=== PATIENT | female | born 1970 | race Caucasian/White ===

== ENCOUNTER 2017-05-10 01:36 | Emergency (ER) | payer BC, OTHER ==
[2017-05-10 01:52] VITALS: RESP 18
[2017-05-10] MEDS ORDERED: PENICILLIN VK 500MG STARTER 4 TAB BTL PO STA (02:08)
[2017-05-10] MEDS ORDERED: IBUPROFEN 600 MG STARTER PACK 4 TAB BTL PO STA (02:08)
--- NOTE | 2017-05-10 02:37 | ED ---
General Adult HPI - General Chief complaint: Dental/Oral Stated complaint: Facial Pain/ENT Time Seen by Provider: 05/10/17 02:01 Source: patient, RN notes reviewed Mode of arrival: ambulatory Limitations: no limitations - History of Present Illness Initial comments: 46-year-old female presents emergency department with a chief complaint of left- sided dental pain. She states that she has had a fracture to her left tooth for a while now however. Stool of flared up. She states she is having some facial swelling with it. She denies any fever chills any nausea or vomiting. She states is just in the left side of the face. She denies any drainage or discharge from the area. He was concerned due to her continued pain so she thought that she should be seen.Patient denies any recent fever, chills, shortness of breath, chest pain, back pain, abdominal pain, nausea vomiting, numbness or tingling, dysuria or hematuria, constipation or diarrhea, headaches or visual changes, or any other current symptoms. - Related Data Previous Rx's Medication Instructions Recorded HYDROcodone/APAP 5-325MG [[place] 5] 1 each PO Q4HR PRN #10 tab 03/02/15 Ibuprofen [Motrin] 600 mg PO Q6HR PRN #20 tab 05/10/17 Penicillin V Potassium [Pen Vee K] 500 mg PO QID 7 Days tablet 05/10/17 Allergies Allergy/AdvReac Type Severity Reaction Status Date / Time aspirin AdvReac Unknown Verified 05/10/17 01:53 Review of Systems ROS Statement: Those systems with pertinent positive or pertinent negative responses have been documented in the HPI. ROS Other: All systems not noted in ROS Statement are negative. Past Medical History Past Medical History: Hyperlipidemia, Osteoarthritis (OA) Additional Past Medical History / Comment(s): TMJ, meniere's disease, History of Any Multi-Drug Resistant Organisms: None Reported Past Surgical History: Hysterectomy, Orthopedic Surgery Additional Past Surgical History / Comment(s): 12/06/15 Lumbar laminectomy with discectomy L4-L5. Other surgical hx: NECK FUSION. PAIN PROCEDURES., Past Anesthesia/Blood Transfusion Reactions: No Reported Reaction Past Psychological History: Depression Smoking Status: Current every day smoker Past Alcohol Use History: Rare Past Drug Use History: None Reported - Past Family History Father Family Medical History: Dementia, Diabetes Mellitus, Hypertension Additional Family Medical History / Comment(s): Father is in his mid 80's Mother Family Medical History: No Reported History Additional Family Medical History / Comment(s): Mother is in her mid 80's and does not go to the doctors. General Exam Limitations: no limitations General appearance: alert, in no apparent distress Eye exam: Present: normal appearance, PERRL, EOMI. Absent: scleral icterus, conjunctival injection, periorbital swelling ENT exam: Present: normal exam, mucous membranes moist, other (Patient does appear to have a cavity to tooth #15 and doesn't appear to be fractured. No abscess noted.) Neck exam: Present: normal inspection. Absent: tenderness, meningismus, lymphadenopathy Respiratory exam: Present: normal lung sounds bilaterally. Absent: respiratory distress, wheezes, rales, rhonchi, stridor Cardiovascular Exam: Present: regular rate, normal rhythm, normal heart sounds. Absent: systolic murmur, diastolic murmur, rubs, gallop, clicks Extremities exam: Present: normal inspection, full ROM, normal capillary refill. Absent: tenderness, pedal edema, joint swelling, calf tenderness Back exam: Present: normal inspection Neurological exam: Present: alert, oriented X3 Psychiatric exam: Present: normal affect, normal mood Course Vital Signs 05/10/17 01:48 Temperature 99.1 F Pulse Rate 89 Respiratory 18 Rate Blood Pressure 137/79 O2 Sat by Pulse 99 Oximetry Medical Decision Making - Medical Decision Making 46-year-old female presents for what appears to be dental cavity. At this time we did discuss we'll start her antibiotics and anti-inflammatories. We discussed her continuing her narcotic pain medication that she currently has for back pain. We did discuss return parameters as well as close follow-up with a dentist. We discussed all questions. The patient stated that she understood and she is agreement with this plan. This time she will be discharged. Disposition Clinical Impression: Dental caries Disposition: HOME SELF-CARE Condition: Stable Instructions: Dental Caries (ED) Additional Instructions: Please use medication as discussed. Please follow up with family doctor if symptoms have not improved over the next two days. Please return to the emergency room if your symptoms increase or worsen or for any other concerns. Prescriptions: Ibuprofen [Motrin] 600 mg PO Q6HR PRN #20 tab PRN Reason: Pain Penicillin V Potassium [Pen Vee K] 500 mg PO QID 7 Days tablet Referrals: Alvin Treadwell III, MD [Primary Care Provider] - 1-2 days Time of Disposition: 02:37
[2017-05-10 02:51] VITALS: BP 168/84; PULSE 75; TEMP 98.8
== END 2017-05-10 02:53 | disposition home or self-care (01) ==
LOC: EC 01:36
DX: K02.9 Dental caries, unspecified (principal); F17.200 Nicotine dependence, unspecified, uncomplicated; Z88.6 Allergy status to analgesic agent
CPT/HCPCS: 99282

== ENCOUNTER → 2018-11-12 | Outpatient (CLI) | payer MEDICARE ==
--- NOTE | 2018-11-15 09:48 | MM ---
Reason for exam: screening (asymptomatic). Last mammogram was performed 3 years and 9 months ago. History: Family history of breast cancer in maternal grandmother. Benign excisional biopsy of the left breast, 1999. Physical Findings: A clinical breast exam by your physician is recommended on an annual basis and results should be correlated with mammographic findings. MG 3D Screening Mammo W/Cad Bilateral CC and MLO view(s) were taken. XCCL view(s) were taken of the right breast. Prior study comparison: February 05, 2015, right breast MG 3d work up w/cad RT. January 26, 2015, bilateral MG screening mammo w CAD. There are scattered fibroglandular densities. Benign appearing calcifications in the right breast. No suspicious abnormality. No significant changes when compared with prior studies. ASSESSMENT: Benign, BI-RAD 2 RECOMMENDATION: Routine screening mammogram of both breasts in 1 year.
== END | disposition home or self-care (01) ==
LOC: RADMAMWWP 08:20
PROVIDERS: ATTEND Family Medicine
DX: Z12.31 Encounter for screening mammogram for malignant neoplasm of breast (principal)
CPT/HCPCS: 77063; 77067

== ENCOUNTER → 2019-06-08 | Outpatient (CLI) | payer MEDICARE ==
--- NOTE | 2019-06-08 12:00 | XR ---
Cervical spine HISTORY: Neck pain, cervical disc disorder 6 views of the cervical spine No comparisons Patient is status post anterior cervical fusion and discectomy at C5-C7. Intervertebral spacing block s are present. There is anatomic alignment. Cervical vertebral bodies show preserved height and bone mineralization. No evident foraminal encroachment on the right, there is foraminal encroachment on th e left at C5-6 and C6-7. C7-T1 not well seen. Suspect thoracic scoliosis may be present. There are fa cet arthropathy changes. Mild multilevel spondylosis is present. Some mild loss of disc height C3-4, C4-5. IMPRESSION: Postop changes, foraminal encroachment. Degenerative disc disease.
--- NOTE | 2019-06-08 12:09 | XR ---
Lumbar spine HISTORY: Back pain 3 views of the lumbar spine correlated prior exam 03/01/2015 There is multilevel spondylosis present. Lumbar vertebral bodies show preserved height and alignment. Mild loss of intervertebral disc height is present especially L5-S1, L2-3 and L4-5. Sclerosis presen t in the posterior elements of the lower lumbar spine. IMPRESSION: Degenerative disc disease and facet arthropathy.
== END | disposition home or self-care (01) ==
LOC: RADXRWHC 10:36
PROVIDERS: ATTEND Family Medicine
DX: M50.30 Other cervical disc degeneration, unspecified cervical region (principal); M51.36 Other intervertebral disc degeneration, lumbar region; M46.96 Unspecified inflammatory spondylopathy, lumbar region; Z98.890 Other specified postprocedural states
CPT/HCPCS: 72050; 72100

== ENCOUNTER 2022-05-07 10:47 | Emergency (ER) | payer BC, MEDICARE ==
[2022-05-07 10:53] VITALS: TEMP 98.2
[2022-05-07] MEDS ORDERED: PANTOPRAZOLE 40 MG/10 ML VIAL IVP STA (11:34)
[2022-05-07] MEDS ORDERED: SODIUM CHLORIDE 0.9% 1,000 ML IV STA (11:34)
[2022-05-07] MEDS ORDERED: ONDANSETRON 4 MG/2 ML VIAL IVP STA (11:34)
[2022-05-07 13:03] LABS: Appearance,Urine Clear (Clear); Bilirubin,Urine Negative (Negative); Blood,Urine Negative (Negative); Color,Urine Colorless; Glucose,Urine (UA) Negative (Negative); Ketones,Urine Negative (Negative); Leukocyte Esterase,Urine Negative (Negative); Nitrite,Urine Negative (Negative); PH, Urine 5.5 (5.0-8.0); Protein,Urine Negative (Negative); Specific Gravity,Urine 1.003 (1.001-1.035); Urobilinogen,Urine <2.0 mg/dL (<2.0)
--- NOTE | 2022-05-07 13:15 | XR ---
EXAMINATION TYPE: XR chest 2V DATE OF EXAM: 05/07/2022 COMPARISON: NONE HISTORY: Abdominal pain and tremors TECHNIQUE: Frontal and lateral views of the chest are obtained. FINDINGS: The cardiomediastinal silhouette is unremarkable. There is no pulmonary vascular congestio n. The lungs are clear and there is no pleural effusion. No pneumothorax. No acute osseous abnormalit y. Anterior cervical disc fusion present. IMPRESSION: No acute cardiopulmonary process.
[2022-05-07 13:16] LABS: ALT 29 U/L (4-34); AST 33 U/L (14-36); African American GFR (CKD) >90 (>60 ml/min/1.73 sqM); Albumin 4.1 g/dL (3.5-5.0); Alkaline Phosphatase 117 U/L (38-126); Amylase 65 U/L (30-110); Anion Gap 5 mmol/L; Blood Urea Nitrogen 11 mg/dL (7-17); Calcium 8.9 mg/dL (8.4-10.2); Carbon Dioxide 25 mmol/L (22-30); Chloride 108 mmol/L (98-107); Glucose 105 mg/dL (74-99); Lipase 114 U/L (23-300); Non-African American GFR(CKD) >90 (>60 ml/min/1.73 sqM); Potassium 4.6 mmol/L (3.5-5.1); Sodium 138 mmol/L (137-145); Total Bilirubin 0.4 mg/dL (0.2-1.3); Total Protein 7.2 g/dL (6.3-8.2)
[2022-05-07 13:17] LABS: Basophils % (A) 1 %; Eosinophils # (A) 0.1 k/uL (0-0.7); Eosinophils % (A) 2 %; HGB 13.2 gm/dL (11.4-16.0); Lymphocytes # (A) 1.1 k/uL (1.0-4.8); Lymphocytes % (A) 13 %; MCH 28.4 pg (25.0-35.0); MCV 86.1 fL (80.0-100.0); Monocytes # (A) 0.3 k/uL (0-1.0); Monocytes % (A) 3 %; Neutrophils # (A) 6.6 k/uL (1.3-7.7); Neutrophils % (A) 81 %; Platelet Count 184 k/uL (150-450); RBC 4.65 m/uL (3.80-5.40); RDW 14.1 % (11.5-15.5); WBC 8.2 k/uL (3.8-10.6)
[2022-05-07 13:23] LABS: INR 0.9 (<1.2); Partial Thromboplastin Time 22.1 sec (22.0-30.0)
--- NOTE | 2022-05-07 14:18 | ED ---
General Adult HPI - General Chief complaint: Abdominal Pain Stated complaint: Abd pain Time Seen by Provider: 05/07/22 11:07 Source: patient, RN notes reviewed, old records reviewed Mode of arrival: EMS Limitations: no limitations - History of Present Illness Initial comments: Patient is a 51-year-old female with past medical history remarkable for chol ecystectomy last December presents emergency Department complaining of sudden onset nausea, vomiting earlier today. States she awoke, was eating and drinking her normal breakfast including coffee and toast when she had sudden onset nonbilious, bloody emesis. Multiple episodes. States she does have anxiety regarding food. At some epigastric discomfort at time but denies any pain now. Denies any chest pain. Denies any shortness breath. Denies any fevers, chills, cough. His no other acute complaints at this time. No urinary complaints. Presents because she is uncertain what caused the sudden onset nausea and vomiting. No other symptoms present. No other family members with similar symptoms. Presents for further evaluation. - Related Data Home Medications Medication Instructions Recorded Confirmed DULoxetine HCL [Cymbalta] 30 mg PO DAILY 05/07/22 05/07/22 Probiotic + Prebiotic 1 tab PO DAILY 05/07/22 05/07/22 Rosuvastatin [Crestor] 10 mg PO HS 05/07/22 05/07/22 Previous Rx's Medication Instructions Recorded Ondansetron Odt [Zofran Odt] 4 mg PO Q8HR PRN 3 Days #9 tab 05/07/22 Allergies Allergy/AdvReac Type Severity Reaction Status Date / Time latex Allergy Rash/Hives Verified 05/07/22 12:13 aspirin AdvReac Shaking Verified 05/07/22 12:13 Review of Systems ROS Statement: Those systems with pertinent positive or pertinent negative responses have been documented in the HPI. Review of Systems: CONST: Denies fever EYES: Denies blurry vision ENT: Denies nasal congestion C/V: Denies Chest pain RESP: Denies shortness of breath GI: Denies abdominal pain : Denies dysuria SKIN: Denies rash. MSK: Denies joint pain. NEURO: Denies headache ROS Other: All systems not noted in ROS Statement are negative. Past Medical History Past Medical History: Hyperlipidemia, Osteoarthritis (OA) Additional Past Medical History / Comment(s): TMJ, meniere's disease, History of Any Multi-Drug Resistant Organisms: None Reported Past Surgical History: Cholecystectomy, Hysterectomy, Orthopedic Surgery Additional Past Surgical History / Comment(s): 12/06/15 Lumbar laminectomy with discectomy L4-L5. Other surgical hx: NECK FUSION. PAIN PROCEDURES., Past Anesthesia/Blood Transfusion Reactions: No Reported Reaction Past Psychological History: Depression Smoking Status: Former smoker Past Alcohol Use History: Rare Past Drug Use History: None Reported - Past Family History Father Family Medical History: Dementia, Diabetes Mellitus, Hypertension Additional Family Medical History / Comment(s): Father is in his mid 80's Mother Family Medical History: No Reported History Additional Family Medical History / Comment(s): Mother is in her mid 80's and does not go to the doctors. General Exam - General Exam Comments Initial Comments: General: Appears in no acute distress. HEAD: Normal with no signs of head trauma. EYES: PERRLA, EOMI, conjunctiva normal, no discharge. ENT: Hearing grossly intact, normal oropharynx. RESPIRATORY: Clear breath sounds bilaterally. No wheezes, rales, or rhonchi. C/V: Regular rate and rhythm. S1 and S2 auscultated, no edema, peripheral pulses 2+ and intact throughout ABD: Abd is soft, nontender, nondistended EXT: Normal range of motion, no obvious deformity SKIN: No rashes or lesions observed on exposed skin. NEURO: Alert and oriented x 4. Cranial nerves II-XII intact. No focal sensory or strength deficits. Limitations: no limitations Course Vital Signs 05/07/22 05/07/22 10:50 14:31 Temperature 98.2 F Pulse Rate 83 79 Respiratory 17 16 Rate Blood Pressure 148/78 137/90 O2 Sat by Pulse 98 96 Oximetry Medical Decision Making - Medical Decision Making Based on the patient's presentation and physical exam, I am concerned for what sounds like more of an anxiety episode but cannot rule out other etiology at this time including possible abdominal or atypical ACS presentation. She is a symptomatic at this time. She has no complaints at this time. We will obtain abdominal laboratory studies, screening EKG, chest x-ray, as well as troponin. She was in agreement this plan. She'll be symptomatic the treated with IV fluids as well as empirically with IV Zofran and Protonix. Vital signs within acceptable limits. EKG showed no signs of acute ischemia. Chest x-ray revealed no acute cardio pulmonary process. Laboratory studies were remarkable for a undetectable troponin. Remainder the labs are within acceptable limits. On reevaluation, patient is feeling the same. She remains a symptomatic. She would like to go home. I believe this is reasonable. Symptoms could've been related to anxiety, gastritis and she admits she not been taking her Protonix. I did recommend that she resume this. She was in agreement this plan. Strict return precautions were discussed. I will provide the patient with a prescription for ODT Zofran. I instructed the patient to follow up with their PCP in the next 1-3 days. I explained that the patient should return to the emergency department if they experience any worsening symptoms. Strict return precautions were discussed with the patient. The patient expressed understanding of these instructions. I answered all questions that the patient had. The patient was discharged home in good condition with their prescriptions and follow up information. Was pt. sent in by a medical professional or institution (, PA, MICROBIOLOGY ANALYST, urgent care, hospital, or long term...) When possible be specific @ -No Did you speak to anyone other than the patient for history (EMS, parent, family, police, friend...)? What history was obtained from this source @ -No Did you review nursing and triage notes (agree or disagree)? Why? @ -I reviewed and agree with nursing and triage notes Were old charts reviewed (outside hosp., previous admission, EMS record, old EKG, old radiological studies, urgent care reports/EKG's, long term records)? Report findings @ -No old charts were reviewed Differential Diagnosis (chest pain, altered mental status, abdominal pain women, abdominal pain men, vaginal bleeding, weakness, fever, dyspnea, syncope, headache, dizziness, GI bleed, back pain, seizure, CVA, palpatations, mental health)? @ -Anxiety, gastritis, ACS, infectious. This list is not all inclusive. EKG interpreted by me (3pts min.). @ -As above X-rays interpreted by me (1pt min.). @ -Chest X-ray revealed no acute cardiopulmonary process. CT interpreted by me (1pt min.). @ -None done U/S interpreted by me (1pt. min.). @ -None done What testing was considered but not performed or refused? (CT, X-rays, U/S, labs)? Why? @ -None What meds were considered but not given or refused? Why? @ -None Did you discuss the management of the patient with other professionals (professionals i.e. , PA, MICROBIOLOGY ANALYST, lab, RT, psych nurse, social media job titles, stock analyst, teacher, senior credit officer, caseworker protective services)? Give summary @ -No Was smoking cessation discussed for >3mins.? @ -No Was critical care preformed (if so, how long)? @ -No Were there social determinants of health that impacted care today? How? (Home lessness, low income, unemployed, alcoholism, drug addiction, transportation, low edu. Level, literacy, decrease access to med. care, alf, rehab)? @ -No Was there de-escalation of care discussed even if they declined (Discuss DNR or withdrawal of care, Hospice)? DNR status @ -No What co-morbidities impacted this encounter? (DM, HTN, Smoking, COPD, CAD, Cancer, CVA, ARF, Chemo, Hep., AIDS, mental health diagnosis, sleep apnea, morbid obesity)? @ -History of cholecystectomy, gastritis Was patient admitted / discharged? Hospital course, mention meds given and route, prescriptions, significant lab abnormalities, going to OR and other pertinent info. @ -Patient was discharged home. See above for ED course. Undiagnosed new problem with uncertain prognosis? @ -No Drug Therapy requiring intensive monitoring for toxicity (Heparin, Nitro, Insulin, Cardizem)? @ -No Were any procedures done? @ -No Diagnosis/symptom? @ -Nausea and Vomiting Acute, or Chronic, or Acute on Chronic? @ -Acute Uncomplicated (without systemic symptoms) or Complicated (systemic symptoms)? @ -Uncomplicated Side effects of treatment? @ -No Exacerbation, Progression, or Severe Exacerbation? @ -No Poses a threat to life or bodily function? How? (Chest pain, [place], [place], pneumonia, PE, COPD, DKA, ARF, appy, cholecystitis, CVA, Diverticulitis, Homicidal, Suicidal, threat to staff... and all critical care pts) @ -No - Lab Data Result diagrams: 05/07/22 12:37 05/07/22 12:37 Lab Results 05/07/22 05/07/22 05/07/22 Range/Units 12:37 12:37 12:37 WBC 8.2 (3.8-10.6) k/uL RBC 4.65 (3.80-5.40) m/uL Hgb 13.2 (11.4-16.0) gm/dL Hct 40.0 (34.0-46.0) % MCV 86.1 (80.0-100.0) fL MCH 28.4 (25.0-35.0) pg MCHC 33.0 (31.0-37.0) g/dL RDW 14.1 (11.5-15.5) % Plt Count 184 (150-450) k/uL MPV 8.0 Neutrophils % 81 % Lymphocytes % 13 % Monocytes % 3 % Eosinophils % 2 % Basophils % 1 % Neutrophils # 6.6 (1.3-7.7) k/uL Lymphocytes # 1.1 (1.0-4.8) k/uL Monocytes # 0.3 (0-1.0) k/uL Eosinophils # 0.1 (0-0.7) k/uL Basophils # 0.0 (0-0.2) k/uL PT (9.0-12.0) sec INR (<1.2) APTT (22.0-30.0) sec Sodium 138 (137-145) mmol/L Potassium 4.6 (3.5-5.1) mmol/L Chloride 108 H (98-107) mmol/L Carbon Dioxide 25 (22-30) mmol/L Anion Gap 5 mmol/L BUN 11 (7-17) mg/dL Creatinine 0.70 (0.52-1.04) mg/dL Est GFR (CKD-EPI)AfAm >90 (>60 ml/min/1.73 sqM) Est GFR (CKD-EPI)NonAf >90 (>60 ml/min/1.73 sqM) Glucose 105 H (74-99) mg/dL Plasma Lactic Acid [place] (0.7-2.0) mmol/L Calcium 8.9 (8.4-10.2) mg/dL Total Bilirubin 0.4 (0.2-1.3) mg/dL AST 33 (14-36) U/L ALT 29 (4-34) U/L Alkaline Phosphatase 117 (38-126) U/L Troponin I <0.012 (0.000-0.034) ng/mL Total Protein 7.2 (6.3-8.2) g/dL Albumin 4.1 (3.5-5.0) g/dL Amylase 65 (30-110) U/L Lipase 114 (23-300) U/L Urine Color Urine Appearance (Clear) Urine pH (5.0-8.0) Ur Specific [place] (1.001-1.035) Urine Protein (Negative) Urine Glucose (UA) (Negative) Urine Ketones (Negative) Urine Blood (Negative) Urine Nitrite (Negative) Urine Bilirubin (Negative) Urine Urobilinogen (<2.0) mg/dL Ur Leukocyte Esterase (Negative) 05/07/22 05/07/22 05/07/22 Range/Units 12:37 12:37 12:37 WBC (3.8-10.6) k/uL RBC (3.80-5.40) m/uL Hgb (11.4-16.0) gm/dL Hct (34.0-46.0) % MCV (80.0-100.0) fL MCH (25.0-35.0) pg MCHC (31.0-37.0) g/dL RDW (11.5-15.5) % Plt Count (150-450) k/uL MPV Neutrophils % % Lymphocytes % % Monocytes % % Eosinophils % % Basophils % % Neutrophils # (1.3-7.7) k/uL Lymphocytes # (1.0-4.8) k/uL Monocytes # (0-1.0) k/uL Eosinophils # (0-0.7) k/uL Basophils # (0-0.2) k/uL PT 10.0 (9.0-12.0) sec INR 0.9 (<1.2) APTT 22.1 (22.0-30.0) sec Sodium (137-145) mmol/L Potassium (3.5-5.1) mmol/L Chloride (98-107) mmol/L Carbon Dioxide (22-30) mmol/L Anion Gap mmol/L BUN (7-17) mg/dL Creatinine (0.52-1.04) mg/dL Est GFR (CKD-EPI)AfAm (>60 ml/min/1.73 sqM) Est GFR (CKD-EPI)NonAf (>60 ml/min/1.73 sqM) Glucose (74-99) mg/dL Plasma Lactic Acid Jos[place] 0.9 (0.7-2.0) mmol/L Calcium (8.4-10.2) mg/dL Total Bilirubin (0.2-1.3) mg/dL AST (14-36) U/L ALT (4-34) U/L Alkaline Phosphatase (38-126) U/L Troponin I (0.000-0.034) ng/mL Total Protein (6.3-8.2) g/dL Albumin (3.5-5.0) g/dL Amylase (30-110) U/L Lipase (23-300) U/L Urine Color Colorless Urine Appearance Clear (Clear) Urine pH 5.5 (5.0-8.0) Ur Specific [place] 1.003 (1.001-1.035) Urine Protein Negative (Negative) Urine Glucose (UA) Negative (Negative) Urine Ketones Negative (Negative) Urine Blood Negative (Negative) Urine Nitrite Negative (Negative) Urine Bilirubin Negative (Negative) Urine Urobilinogen <2.0 (<2.0) mg/dL Ur Leukocyte Esterase Negative (Negative) - EKG Data -: EKG Interpreted by Me EKG Comments: 12-lead Electrocardiogram Interpretation Note EKG was reviewed and interpreted by myself. 12-lead ECG performed at 1301 is interpreted by me as revealing normal sinus rhythm at a rate of 67 beats per minute. [place] is normal. NH interval is 152 ms, QRS duration is 95 ms, QTc is 438 ms.. There were no ST or T wave abnormalities to suggest myocardial ischemia or injury. R wave progression across the precordium was satisfactory. By my interpretation this EKG is non-diagnostic for acute ischemia. No prior EKG for comparison. Disposition Clinical Impression: Nausea and vomiting Disposition: HOME SELF-CARE Condition: Good Instructions (If sedation given, give patient instructions): Acute Nausea and Vomiting (ED) Prescriptions: Ondansetron Odt [Zofran Odt] 4 mg PO Q8HR PRN 3 Days #9 tab PRN Reason: Nausea Is patient prescribed a controlled substance at d/c from ED?: No Referrals: Wlima Villavicencio MD [Primary Care Provider] - 1-2 days Time of Disposition: 14:00
[2022-05-07 14:32] VITALS: BP 137/90; PULSE 79; RESP 16
== END 2022-05-07 14:32 | disposition home or self-care (01) ==
LOC: EC 10:47
DX: R11.2 Nausea with vomiting, unspecified (principal); E78.5 Hyperlipidemia, unspecified; M19.90 Unspecified osteoarthritis, unspecified site; F41.9 Anxiety disorder, unspecified; Z79.899 Other long term (current) drug therapy; Z87.891 Personal history of nicotine dependence; Z88.6 Allergy status to analgesic agent; Z91.040 Latex allergy status
CPT/HCPCS: 36415; 93005; 80053; 82150; 83605; 83690; 84484; 85025; 85610; 85730; 81003; 71046; 99285; 96374; 96375; 96361; J2405; C9113

== ENCOUNTER → 2022-09-23 | Outpatient (CLI) | payer BC ==
--- NOTE | 2022-09-24 18:54 | MM ---
Reason for Exam: Screening (asymptomatic). Last mammogram was performed 3 year(s) and 10 month(s) ago. Patient History: Menarche at age 9. First Full-Term at age 15. Hysterectomy at age 28. Postmenopausal. 1999, Benign Excisional Biopsy on the left side. Maternal grandmother had breast cancer. Risk Values: [place] 5 year model risk: 1.1%. NCI Lifetime model risk: 7.8%. Prior Study Comparison: 01/26/2015 Bilateral Screening Mammogram, [facility]. 02/05/2015 Right Diagnostic Mammogram, [facility]. 11/12/2018 Bilateral Screening Mammogram, [facility]. Tissue Density: There are scattered fibroglandular densities. Findings: Analyzed By CAD. Pattern appears symmetrical and stable. Benign calcification within the right breast no significant interval change is evident. No suspicious groups of microcalcifications, spiculated or lobular masses, architectural distortion or other secondary signs of malignancy are mammographically apparent. Overall Assessment: Benign, BI-RAD 2 Management: Screening Mammogram of both breasts in 1 year. A negative mammogram report should not preclude additional follow up of suspicious palpable abnormalities. Patient should continue monthly self breast exam. A clinical breast exam by your physician is recommended on an annual basis and results should be correlated with mammographic findings. Electronically signed and approved by: Shilo Ya D.O. Radiologis
== END | disposition home or self-care (01) ==
LOC: RADMAMWWP 14:35
PROVIDERS: ATTEND Family Medicine
DX: Z12.31 Encounter for screening mammogram for malignant neoplasm of breast (principal); Z78.0 Asymptomatic menopausal state; Z80.3 Family history of malignant neoplasm of breast
CPT/HCPCS: 77063; 77067

== ENCOUNTER → 2022-09-23 | Outpatient (CLI) | payer BC ==
--- NOTE | 2022-09-23 18:09 | CTL ---
EXAMINATION TYPE: CT Low Dose Lung DATE OF EXAM ORDERED: 09/23/2022 HISTORY: Z87.891 PERSONAL HX TOBACCO ABUSE. Lung cancer screening CT DLP: 82.[address] CTDI: 2.4 mGy Automated exposure control for dose reduction was used. SCREENING VISIT: First screening visit COMPARISON: Chest radiograph 05/07/2022 TECHNIQUE: Low dose computed tomography scan was performed through the chest at 1 mm thick sections a nd reconstructed images in multiple planes at 1 mm and [address] DIAGNOSTIC QUALITY: Satisfactory FINDINGS: LUNG NODULES: Left upper lobe 3 mm pulmonary nodule (series 4, image 44). Right upper lobe 3 mm pulmo nary nodule (series 4, image 41). 4 mm pulmonary nodule along the right minor fissure (series 4, imag e 137). This may represent an intrafissural lymph node. LUNGS: COPD: Severity: Mild Fibrosis: Severity: None Lymph nodes: None Other findings: None RIGHT PLEURAL SPACE: Effusion: None Calcification: None Thickening: None Pneumothorax: None LEFT PLEURAL SPACE: Effusion: None Calcification: None Thickening: None Pneumothorax: None HEART: Heart Size: Normal. Mild mitral annulus calcifications. Coronary Calcification: Small Pericardial Effusion: None OTHER FINDINGS: Upper abdomen: None Bony thorax: No acute process. Partial visualization of anterior cervical fusion hardware. Nonspecifi c sclerotic focus within the lower sternal. Supraclavicular region: None Other: None IMPRESSION: 1. Few scattered pulmonary nodules measuring up to [address] 2. Mild COPD changes. CT LUNG RAD AND CT CHEST RECOMMENDATION: Lung-Rad 2 Benign Appearance or Behavior: Continue annual sc reening with LDCT in 12 months. S Modifier (other clinically significant findings): None
== END | disposition home or self-care (01) ==
LOC: RADCTMAIN 14:58
PROVIDERS: ATTEND Family Medicine
DX: Z12.2 Encounter for screening for malignant neoplasm of respiratory organs (principal); R91.8 Other nonspecific abnormal finding of lung field; J44.9 Chronic obstructive pulmonary disease, unspecified; Z87.891 Personal history of nicotine dependence
CPT/HCPCS: 71271

== ENCOUNTER → 2022-09-26 | Outpatient (CLI) | payer BC ==
--- NOTE | 2022-09-26 11:12 | CA ---
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 Procedure CPT: Indication: R07.9 Chest pain R11.10 Vomiting R61 HYPERHIDROSIS ICD-9 Codes: Rhythm: Patient History: Syncope and hypercholeserolemia Cardiac Medications: Medications in past 24 hours: Contrast: Stress Results Protocol: Benson Total dose(mL): Exercise Duration (min:sec): Max ST Depression (mm): Angina Score: Rodriguez Score: METS: 10.3 Resting HR: 76 Resting BP: 95 / 43 Peak HR: 141 Peak BP: 174 / 66 Max Predicted HR: 166 85 % Max Predicted HR Target HR: 141 Double Product: 38175 Stress Summary: The patient's target heart rate was achieved BP Response: Normal Reason for Termination: Reached target heart rate or work-load Cardiac Symptoms: No cardiac symptoms ECG Analysis Resting ECG: Normal sinus rhythm, normal ECG Stress ECG: No abnormal ST/T wave changes with exercise Arrhythmia: None Echo Analysis Resting Echo: Normal resting echocardiogram. Peak Echo Analysis: Normal wall thickening and motion MEASUREMENTS (Male/Female) Normal Values CONCLUSIONS No ECG evidence of ischemia with exercise. Normal treadmill stress echocardiogram. Dr. Kailee Elena MD (Electronically Signed) Final Date: 26 September 2022 11:12
== END | disposition home or self-care (01) ==
LOC: RADNMMAIN 09:14
PROVIDERS: ATTEND Family Medicine
DX: R07.9 Chest pain, unspecified (principal); R11.10 Vomiting, unspecified; R61 Generalized hyperhidrosis
CPT/HCPCS: 93351

== ENCOUNTER → 2024-08-04 | Outpatient (CLI) | payer OTHER ==
--- NOTE | 2024-08-04 15:23 | BD ---
EXAMINATION TYPE: Axial Bone Density DATE OF EXAM: 08/04/2024 CLINICAL HISTORY: 54 years old Female. ICD-10 CODE: Z78.0 ASYMPTOMATIC MENOPAU , Additional History: Height: 62.25 Weight: 185 FRAX RISK QUESTIONS: History of Fracture in Adulthood: yes Secondary Osteoporosis: 3. Menopause before 45: yes RISK FACTORS HISTORY OF: Surgery to Spine/Hip(right/left)/Wrist (right/left): cervical and lumbar surgery When: 2017 MEDICATIONS: EXAM MEASUREMENTS: Bone mineral densitometry was performed using the [employer] System. Bone mineral density about the R hip (g/cm2): 0.844 Bone mineral density about the L hip (g/cm2): 0.852 T Score values are as follows: -----R Neck: -1.7 -----L Neck: -1.5 -----R Total: -1.3 -----L Total: -1.2 Z Score values are as follows: -----R Neck: -1.0 -----L Neck: -0.9 -----R Total: -1.0 -----L Total: -1.0 First dexa at [facility] FRAX%s: The graph provided illustrates a 6.9% chance for a major osteoporotic fx and a 0.6% chance fo r the hips probability for fx in 10 years time. IMPRESSION: Osteopenia (T Score between -2.5 and -1). There is slightly increased risk of fracture and the patient may be considered for treatment. Re-Screen 2-5 years. NOTE: T-SCORE=SD OF THE YOUNG ADULT MEAN. [facility], , 08/04/2024 3:20 PM
--- NOTE | 2024-08-08 14:23 | MM ---
Reason for Exam: Screening (asymptomatic). Last mammogram was performed 1 year(s) and 10 month(s) ago. Patient History: Menarche at age 9. First Full-Term at age 15. Hysterectomy at age 28. Postmenopausal. 1999, Benign Excisional Biopsy on the left side. Maternal grandmother had breast cancer. Risk Values: Cintia 5 year model risk: 1.2%. NCI Lifetime model risk: 7.5%. Prior Study Comparison: 02/05/2015 Right Diagnostic Mammogram, [facility]. 11/12/2018 Bilateral Screening Mammogram, [facility]. 09/23/2022 Bilateral MG 3D screening mammo w/cad, [facility]. Tissue Density: There are scattered areas of fibroglandular density. Findings: Analyzed By CAD. There is no suspicious group of microcalcifications or new suspicious mass in either breast. Overall Assessment: Benign, BI-RAD 2 Management: Screening Mammogram of both breasts in 1 year. . Patient should continue monthly self-breast exams. A clinical breast exam by your physician is recommended on an annual basis. This exam should not preclude additional follow-up of suspicious palpable abnormalities. Note on Cintia scores and lifetime risk: 1. A Cintia score greater than 3% is considered moderate risk. If this is the case, consider specialist referral to assess eligibility for a risk reducing agent. 2. If overall lifetime risk for the development of breast cancer is 20% or higher, the patient may qualify for future screening with alternating mammogram and breast MRI. [facility], , 08/04/2024 1:28 PM. Electronically signed and approved by: Mamadou Holman M.D. Radiolog[facility]
== END | disposition home or self-care (01) ==
LOC: RADMAMWWP 13:13
PROVIDERS: ATTEND Family Medicine
DX: Z12.31 Encounter for screening mammogram for malignant neoplasm of breast (principal); R92.323 Mammographic fibroglandular density, bilateral breasts; M85.89 Other specified disorders of bone density and structure, multiple sites; Z80.3 Family history of malignant neoplasm of breast; Z78.0 Asymptomatic menopausal state
CPT/HCPCS: 77063; 77067; 77080